=== PATIENT | female | born 1955 | race Caucasian/White ===

== ENCOUNTER 2017-10-30 13:29 | Emergency (ER) | payer BC ==
[~2017-10-30] VITALS: Ht 157.5 cm; Wt 64.0 kg
[2017-10-30 13:32] VITALS: BP 147/68; PULSE 53; RESP 16; TEMP 97.7; O2SAT 96
[2017-10-30] MEDS ORDERED: oxyCODONE/ACETAMINOPHEN 5 MG/325 MG TAB PO ONE (15:30)
[2017-10-30] MEDS ORDERED: ONDANSETRON ODT 4 MG TAB PO ONE (15:30)
--- NOTE | 2017-10-30 15:58 | RADRPT ---
EXAM DATE/TIME: 10/30/2017 15:35 [facility] COMPARISON: No previous studies available for comparison. INDICATIONS : Left shoulder pain post fall. MEDICAL HISTORY : None. SURGICAL HISTORY : None. ENCOUNTER: Initial ACUITY: 1 day PAIN SCORE: 10/10 LOCATION: Left upper extremity FINDINGS: There is impacted fracture of the left proximal humerus at the level of the surgical neck and slightl y displaced greater tuberosity fragment. CONCLUSION: Left proximal humerus fracture. Ray Tran MD on October 30, 2017 at 15:56 Board Certified Radiologist. This report was verified electronically.
--- NOTE | 2017-10-30 15:59 | RADRPT ---
EXAM DATE/TIME: 10/30/2017 15:35 [facility] COMPARISON: SHOULDER LEFT LTD (2VWS), October 30, 2017, 15:35. INDICATIONS : Left proximal humerus pain post fall. MEDICAL HISTORY : None. SURGICAL HISTORY : None. ENCOUNTER: Initial ACUITY: 1 day PAIN SCORE: 10/10 LOCATION: Left upper extremity FINDINGS: The bone density is mildly diminished. There is a fracture through the neck of the humerus and greate r tuberosity. CONCLUSION: Left proximal humerus fracture. Ray Tran MD on October 30, 2017 at 15:56 Board Certified Radiologist. This report was verified electronically.
[2017-10-30] MEDS ORDERED: PERC5TAB12 PO (16:34)
--- NOTE | 2017-10-30 16:34 | PD ---
HPI Chief Complaint: Injury Time Seen by Provider: 15:05 Travel History International Travel<30 days: No Contact w/Intl Traveler<30days: No Traveled to known affect area: No History of Present Illness HPI 62-year-old woman who tripped and fell on her porch. She she reached up and grabbed a door but it was swinging open. She she has severe pain when she moves her left arm at all. Some tenderness. No real swelling. She otherwise had been feeling generally well and healthy. No other complaints. No head injury. Pain is severe persistent worsening since onset. History Past Medical History Medical History: Denies Significant Hx Tetanus Vaccination: Unknown Social History Alcohol Use: No Tobacco Use: No Allergies-Medications (Allergen,Severity, Reaction): Coded Allergies: Sulfa (Sulfonamide Antibiotics) (Verified Allergy, Unknown, 10/30/17) Reported Meds & Prescriptions Reported Meds & Active Scripts Active Percocet (Oxycodone-Acetaminophen) 5-325 mg Tab 1-2 Tab PO Q4H PRN Review of Systems Except as stated in HPI: all other systems reviewed are Neg Physical Exam Narrative GENERAL: Well-appearing 62-year-old woman, no acute distress. SKIN: Warm and dry. CARDIOVASCULAR: Warm and well perfused. RESPIRATORY: Normal rate and effort. MUSCULOSKELETAL: Tenderness and swelling in the left shoulder tenderness. Pain with any range of motion of the left shoulder. Elbow is intact. Distal wrist is intact. Grossly normal motor function and normal perfusion distally. NEUROLOGICAL: Awake and alert. No gross deficits. Data Data Last Documented VS Vital Signs Date Time Temp Pulse Resp B/P (MAP) Pulse Ox O2 Delivery O2 Flow Rate FiO2 10/30/17 16:41 16 10/30/17 13:32 97.7 53 147/68 (94) 96 Orders Orders Humerus (Min 2vws) (10/30/17 ) Oxycodone-Acetamin 5-325 Mg (Percocet (10/30/17 15:30) Ondansetron Odt (Zofran Odt) (10/30/17 15:30) Shoulder, Limited(2vws) (10/30/17 ) Ed Discharge Order (10/30/17 16:32) MDM Medical Decision Making Medical Screen Exam Complete: Yes Emergency Medical Condition: Yes Interpretation(s) Left humerus and shoulder x-ray: Proximal humerus fracture Differential Diagnosis Humerus fracture, rotator cuff injury, dislocation, AC separation, other Narrative Course Medical decision making is of 62-year-old who presents emerged from a fall and left shoulder injury. X-ray shows a proximal humerus fracture. Should be placed in a sling. Outpatient follow-up with orthopedic Percocet for pain. Patient tolerated medicine well in ED. Diagnosis Primary Impression: Left humeral fracture Qualified Codes: S42.202A - Unspecified fracture of upper end of left humerus , initial encounter for closed fracture Referrals: Leonides Bennett MD 1 week Additional Instructions: Take pain medicine if needed. Follow-up with Dr. Colin in the next 3-5 days. Use sling until you follow-up with Dr. Colin. Return to the emergency department for any new or worsening symptoms. Med/Other Pt SpecificInfo: Prescription(s) given Scripts Oxycodone-Acetaminophen (Percocet) 5-325 mg Tab 1-2 TAB PO Q4H Y for PAIN, #21 TAB 0 Refills Prov: Sae Mayfield MD 10/30/17 Disposition: 01 DISCHARGE HOME Condition: Stable Sae Mayfield MD October 30, 2017 16:34
[2017-10-30 16:41] VITALS: RESP 16
== END 2017-10-30 16:40 | disposition home or self-care (01) ==
LOC: PHEFT 13:29
DX: S42.292A Other displaced fracture of upper end of left humerus, initial encounter for closed fracture (principal); W01.0XXA Fall on same level from slipping, tripping and stumbling without subsequent striking against object, initial encounter; Y92.89 Other specified places as the place of occurrence of the external cause
CPT/HCPCS: 73030; 73060; 99283